=== PATIENT | female | born 1990 | race Caucasian/White ===

== ENCOUNTER 2016-10-20 17:16 | Emergency (ER) | payer MEDICAID, OTHER ==
[~2016-10-20] VITALS: Ht 167.6 cm; Wt 86.4 kg
[2016-10-20 17:19] VITALS: BP 145/97; PULSE 60; RESP 16; O2SAT 100
--- NOTE | 2016-10-20 19:05 | ED.REPORT ---
HPI-Eye Problem Date of Service Oct 20, 2016 ED Provider: Dr. Giraldo Pt is a 26 y/o female presenting to the ED c/o right eye pain onset today. The patient went to put in her contacts today and believe that her contact ripped in half. She was able to get the top half out and believes there still may be a small piece of the bottom of the contact stuck in her eye. She has had her contacts rip before but she is usually able to fully remove all pieces. Pt denies vision loss, eye discharge. Nursing Notes Stated Complaint: RIGHT EYE PAIN Chief Complaint: Eye Nursing Notes Reviewed: Yes Allergies: Coded Allergies: No Known Allergies (Verified , 10/20/16) General Time Seen by MD: 19:04 Chief Complaint Right eye affected, Pain Hx Obtained From: Patient Arrived By: Walk-in Sudden in Onset?: Yes Onset Occurred: 1 - 4 hours ago Symptom Duration: Since onset Progression Since Onset: Unchanged Caused by: Foreign body in eye Location: : Eye right Quality: Painful Radiation: Does not radiate Severity: Current: Mild Severity: Maximum: Mild Past Medical History Past Medical History Torn meniscus otherwise pt denies major medical problems Past Surgical History None reported Smoking History Unknown if Ever Smoker Social History Heavy alcohol use Ambulatory Status Independent Review of Systems Constitutional: Denies: Chills, Fever Eyes: Reports: Eye pain right, Denies: Blurred right, Diplopia, Discharge right, Visual loss right Complete sys rev & neg: except as marked. Physical Exam Initial Vital Signs Vital Signs (First) Date Time Temp Pulse Resp B/P Pulse Ox O2 Delivery O2 Flow Rate FiO2 10/20/16 17:19 36.3 60 16 145/97 100 Room Air Initial VS: Reviewed, Vital signs normal ENT: Mucous membranes moist, Conjunctiva normal, No scleral icterus Neck: Supple, Full range of motion Respiratory: Breath sounds normal, Clear to auscultation, No respiratory distress Cardiovascular: Regular rate & rhythm, Heart sounds normal, Intact distal pulses Abdomen / GI: Soft, No distention Extremities: Vascular intact, Neuro intact, No swelling, No tenderness Skin: Warm, Dry, No cyanosis Neurologic: Alert, Oriented, Nonfocal Psychiatric: Mood/affect normal, Behavior normal, Normal thought content Head / Eyes: Atraumatic, Normocephalic, PERRL, EOMI, No periorbital redness, No periorbital swelling, No scleral icterus Fluorescein stain - no corneal abrasion, no FB Conjunctival erythema consistent with irritation General/Constitutional: Awake, Alert, No acute distress, Well appearing, Cooperative, Not toxic appearing Re-Eval/Medical Decision Re-Evaluation/Progress : Time of Eval: 19:45 Re-Evaluation/Progress Note: Pt rechecked. Informed pt of plan for treatment. Pt understands and agrees with plan for treatment. F/U instructions and RTER warnings given. All questions addressed. Counseled Regarding: Diagnosis, Need for follow-up, When/why to return to ED Discharge & Departure Primary Impression: Irritation of right eye Disposition: Home Discharge Condition All VS Reviewed: Yes Condition: Stable Patient Instructions: Eye Foreign Body (ED) Additional Instructions: Your eye appeared irritated today but there was no sign of foreign body or corneal abrasion. You can use artificial tears as needed for irritation. Your symptoms should be improved in 1-2 days. Return to the emergency department for worsening pain, discharge from the eye, increased redness, swelling, high fever, vision loss, or for other concerning symptoms. Follow-up with your primary doctor as regularly scheduled or if your symptoms persist. Referrals: [facility] (PCP) Scribe Attestation Portions of this note were transcribed by Rober Mobley. I, Dr. Giraldo, personally performed the history, physical exam and medical decision-making; I reviewed and confirmed the accuracy of the information in the transcribed note. Signed by Sophie Riggins, 10/20/16 - 1930 Horacio Giraldo DO Oct 20, 2016 19:05 ROBER MOBLEY Oct 20, 2016 19:20 ROBER MOBLEY Oct 20, 2016 19:20
[2016-10-20] MEDS ORDERED: 0.9% Sodium Chloride Inhalation Solution ONE (19:23)
[2016-10-20] MEDS ORDERED: Fluorescein 0.6 mg Ophthalmic Strip ONE (19:24)
[2016-10-20] MEDS ORDERED: Tetracaine 0.5% 4 mL Ophthalmic Solution ONE (19:24)
[2016-10-20 20:19] VITALS: BP 130/82; PULSE 62; RESP 17; O2SAT 100
== END 2016-10-20 20:19 | disposition home or self-care (01) ==
LOC: SED 17:16
DX: H57.8 Other specified disorders of eye and adnexa (principal)

== ENCOUNTER 2017-03-12 12:43 | Emergency (ER) | payer MEDICAID, OTHER ==
[~2017-03-12] VITALS: Ht 167.6 cm; Wt 90.9 kg
[2017-03-12 12:46] VITALS: BP 138/84; PULSE 80; RESP 18; O2SAT 98
--- NOTE | 2017-03-12 13:13 | ED.REPORT ---
HPI-General Illness Date of Service Mar 12, 2017 ED Provider: Sebastian Contreras Patient is a 26 year old female with a hx of HTN who presents to the ED with multiple medical complaints onset 2 days ago. Symptoms include sore throat, flank pain, fever, sweats, L ear pain, and cough. She denies vomiting, abdominal pain, diarrhea, dysuria, or any other symptoms. Nursing Notes Stated Complaint: PAIN IN LT EAR,KIDNEY PAIN,FEVER,BODY ACHES,CHILLS Chief Complaint: General Complaint Nursing Notes Reviewed: Yes Allergies: Coded Allergies: No Known Allergies (Verified , 10/20/16) General Time Seen by MD: 13:13 Chief Complaint Multip medical complaints Hx Obtained From: Patient Arrived By: Walk-in Sudden in Onset?: Yes Onset Occurred: 2 days ago Symptom Duration: Since onset Past Medical History Past Medical History Reports: Hypertension Past Surgical History meckel's diverticulum surgery Smoking History Unknown if Ever Smoker Social History Hx of heavy alcohol use Alcohol Use: "Social" Ambulatory Status Independent Review of Systems Full Review of Systems Constitutional: Reports: Fever Eyes: Reports: Eye pain left Ears / Nose / Throat: Reports: Sore throat Respiratory: Reports: Non-productive cough GI: Denies: Abdominal pain, Diarrhea, Vomiting Female: Reports: Flank pain, Denies: Dysuria Skin: Reports Diaphoresis Complete sys rev & neg: except as marked. Physical Exam Vital Signs Vital Signs Date Time Temp Pulse Resp B/P Pulse Ox O2 Delivery O2 Flow Rate FiO2 03/12/17 15:32 37.1 79 14 128/85 97 Room Air 03/12/17 12:46 36.9 80 18 138/84 98 Room Air Initial VS: Reviewed, Vital signs normal Neurologic: Alert, Oriented, Nonfocal Psychiatric: Mood/affect normal, Behavior normal, Normal thought content General/Constitutional: Awake, Alert, No acute distress Head / Eyes: Atraumatic, Normocephalic ENT: Atraumatic, Airway patent, Tympanic membs NL tonsillar hypertrophy with exudate Neck: Atraumatic, Full range of motion Respiratory / Chest: Breath sounds NL, Breath sounds = bilat, No respiratory distress Cardiovascular: Heart rate NL, Regular rhythm, Heart sounds NL Abdomen: Atraumatic, Soft, Non-tender Back: Atraumatic, No CVA tenderness Skin: Color NL, Warm, Dry Interpretation & Diagnostics Lab Results Interpretation Test 03/12/17 14:04 Monoscreen Negative (Negative) Lab Results Interpretation: rapid strep neg Re-Eval/Medical Decision Med Decision/Clinical Course Patient's physical exam findings seemed very much consistent with strep throat despite a negative rapid stress test, given the lack of 100% sensitivity of this test in the relatively low side effect profile of a shot of Bicillin, she was treated with Bicillin. Monospot was also negative. Return and follow-up precautions given Time of Eval: 14:28 Re-Evaluation/Progress Note: Discussed plan for discharge. Patient understands and agrees with plan. All questions addressed at this time. Counseled Regarding: Diagnosis, Lab results, Need for follow-up, When/why to return to ED Discharge & Departure Primary Impression: Pharyngitis Pharyngitis/tonsillitis etiology: unspecified etiology Qualified Code: J02.9 - Acute pharyngitis, unspecified Disposition: Home Discharge Condition All VS Reviewed: Yes Condition: Stable Patient Instructions: Pharyngitis (ED) Additional Instructions: Thank you for entrusting us with your care. You received a dose of long acting penicillin just in case your strep was a false negative. You may take Tylenol and Ibuprofen as needed for pain. Follow up with your primary doctor in the next week. Return to the emergency department for new or worsening symptoms. Referrals: [facility]es Attestation Portions of this note were transcribed by Cruz Booth. I, Dr. Contreras personally performed the history, physical exam and medical decision-making; I reviewed and confirmed the accuracy of the information in the transcribed note. Signed by: Sophie Valdez, 03/12/17 at 1430 copies to: [facility] Sebastian Contreras DO Mar 12, 2017 13:13 CRUZ BOOTH Mar 12, 2017 13:25
[2017-03-12 15:32] VITALS: BP 128/85; PULSE 79; RESP 14; O2SAT 97
== END 2017-03-12 15:30 | disposition home or self-care (01) ==
LOC: SED 12:43
DX: J02.9 Acute pharyngitis, unspecified (principal); H92.02 Otalgia, left ear; R50.9 Fever, unspecified; I10 Essential (primary) hypertension
CPT/HCPCS: 36415; 86308; 87880; 96372; 99284; J0561